=== PATIENT | male | born 1965 | race Caucasian/White ===

== ENCOUNTER → 2019-08-24 | Outpatient (CLI) | payer OTHER ==
[2019-08-24 13:45] VITALS: BP 139/90
[2019-08-24 14:15] VITALS: BP 142/95
== END ==
LOC: M.INFUS 11:47
DX: E86.0 Dehydration (principal); C06.9 Malignant neoplasm of mouth, unspecified

== ENCOUNTER → 2019-08-25 | Outpatient (CLI) | payer OTHER ==
[2019-08-25 12:05] VITALS: BP 105/65
[2019-08-25 14:15] VITALS: BP 112/68
--- NOTE | 2019-08-25 14:51 | NUR ---
HYDRATION COMPLETED AND TOELRATED WELL. POST LAB RESULTS CALLED TO DR. SALDAÑA'S OFFICE
== END ==
LOC: M.INFUS 05:40
DX: E86.0 Dehydration (principal); C06.9 Malignant neoplasm of mouth, unspecified